=== PATIENT | female | born 2000 | race Caucasian/White ===

== ENCOUNTER 2022-04-17 16:15 | Outpatient (CLI) | payer OTHER, SELFPAY ==
[2022-04-17 19:29] LABS: Chlamydia DNA Amplified* NOT DETECTED (No Detected); GC DNA Amplified* NOT DETECTED (No Detected)
== END 2022-04-17 16:16 | disposition home or self-care (01) ==
PROVIDERS: PCP Family Medicine; Visit Provider Registered Nurse
DX: Z01.419 Encounter for gynecological examination (general) (routine) without abnormal findings (principal); Z11.3 Encounter for screening for infections with a predominantly sexual mode of transmission
CPT/HCPCS: 87491; 87591; 88174